=== PATIENT | male | born 1965 | race Caucasian/White ===

== ENCOUNTER 2018-10-04 22:38 | Emergency (ER) | payer SELFPAY ==
[2018-10-04 22:41] VITALS: TEMP 35.3; BMI 32.1
--- NOTE | 2018-10-04 22:47 | ED.RN ---
DR. BENITES CALLED STOP TO CPR AT 5379.
--- NOTE | 2018-10-04 23:53 | ED.DCSUM_ITS ---
- ER Visit Summary Date of Service: 10/04/18 Chief Complaint: Full arrest History of Present Illness: The patient is a 53 M brought by EMS for a full arrest. Patient has been down for about [address] an iGel airway device. Auto pulse was used for CPR. He received narcan and epinephrine and went from asystole to PEA. His capnography has been between 9 and 11. Patient's identity is unknown. Past medical history is unknown. Physical Examination: Patient is in cardiopulmonary arrest. No spontaneous respirations and no pulse. Skin is pale. Supraglottic device is in place and auto pulse device is performing CPR. Pupils fixed and dilated. Head and neck grossly atraumatic. Test Results: None performed Emergency Department Course and Treatment: Patient seen immediately on arrival. The CPR device was pausing frequently, and so it was discontinued for manual CPR. Patient had no pulse and was in PEA. He received additional epinephrine here, 2 rounds. He also received sodium bicarb and calcium. I intubated the patient with the glidescope. The ET tube was visualized passing through the cords. He had good chest rise. Patient continued to have no pulse or respirations. Bedside ultrasound showed no cardiac activity. No effusion. No other pertinent findings. Patient was pronounced at 10:47 PM with full agreement of the resuscitation team. He had been down for 47 minutes. At this time, his identity is unknown and we do not know his doctor's name or next of kin. Treatment Plan: As above Disposition: Pending identification Impression: 1. Cardiopulmonary arrest This note was generated with [employer] dictation software. It may contain incorrect words, spelling, and punctuation that were not noted in review of the chart prior to signing ED Disposition - Plan for ED Patient: Referrals: Care Physician,No Primary [Primary Care Provider] -
--- NOTE | 2018-10-05 01:19 | ED.RN ---
SEE PAPER CODE DOCUMENTATION
--- NOTE | 2018-10-05 01:46 | ED.RN ---
PT RECEIVED APPROX 600ML OF NS
--- NOTE | 2018-10-05 02:13 | ED.RN ---
UNABLE TO COMPLETE ALL OF REPORT OF D/T UNKNOWN PT NAME OR INFORMATION. 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
== END 2018-10-04 22:47 ==
LOC: ED 23:22
PROVIDERS: Emergency Provider Emergency Medicine
DX: I46.9 Cardiac arrest, cause unspecified (principal)
CPT/HCPCS: 31500; 92950; 99281; J7030; A4216